=== PATIENT | female | born 1940 | race Caucasian/White ===

== ENCOUNTER → 2025-09-01 07:00 | Day surgery (SDC) | payer OTHER, SELFPAY | LOC: CATH 07:00 | PROVIDERS: ATTENDING PHYSICIAN Internal Medicine Cardiovascular Disease; FAMILY PHYSICIAN Family Medicine; OTHER PHYSICIAN Internal Medicine | DX: I48.19 Other persistent atrial fibrillation (principal); I48.92 Unspecified atrial flutter; R06.09 Other forms of dyspnea; I08.3 Combined rheumatic disorders of mitral, aortic and tricuspid valves; E66.9 Obesity, unspecified; Z68.32 Body mass index [BMI] 32.0-32.9, adult; I10 Essential (primary) hypertension; E78.5 Hyperlipidemia, unspecified; G47.33 Obstructive sleep apnea (adult) (pediatric); Z87.891 Personal history of nicotine dependence; H40.9 Unspecified glaucoma; M19.90 Unspecified osteoarthritis, unspecified site; R91.8 Other nonspecific abnormal finding of lung field; Z86.718 Personal history of other venous thrombosis and embolism; Z79.01 Long term (current) use of anticoagulants; Z79.899 Other long term (current) drug therapy; R26.2 Difficulty in walking, not elsewhere classified; Z88.8 Allergy status to other drugs, medicaments and biological substances; Z86.711 Personal history of pulmonary embolism; Z90.49 Acquired absence of other specified parts of digestive tract; Z96.653 Presence of artificial knee joint, bilateral | CPT/HCPCS: 93312; 93320; 93325; 86850; 86870; 86900; 86901; 86920; 86922 ==

== ENCOUNTER 2025-09-02 05:56 | Day surgery (SDC) | payer OTHER, SELFPAY ==
[2025-08-24 08:44] VITALS: BMI 32.5
[2025-08-24 09:41] LABS: Hematocrit 39.4 % (37.0-47.0); Hemoglobin 13.3 g/dL (12.0-16.0); Mean Corp Hgb Conc. 33.8 g/dL (33.0-37.0); Mean Corpuscular Volume 88.5 fL (81.0-99.0); Nucleated Red Blood Cells % 0 %; Platelet Count 278 10^3/uL (130-400); Red Cell Dist. Width 14.0 % (11.5-14.5)
[2025-08-24 09:47] LABS: INR 1.38; PT 17.2 Sec (11.4-14.6)
[2025-08-24 10:48] LABS: ALT (SGPT) 39 U/L (0-35); AST (SGOT) 36 U/L (14-36); Albumin 4.1 g/dl (3.5-5.0); Alkaline Phosphatase 74 U/L (38-126); Blood Urea Nitrogen 20 mg/dl (7-17); Calcium 9.6 mg/dl (8.4-10.2); Carbon Dioxide 28 mmol/L (22-30); Chloride 106 mmol/L (98-107); Estimated Creatinine Clearance 46 ml/min; Glucose 92 mg/dl (70-99); Magnesium 2.0 mg/dl (1.6-2.3); Potassium 4.5 mmol/L (3.5-5.1); Sodium 140 mmol/L (135-145); Total Protein 7.3 g/dl (6.3-8.2); eGFR > 60.00
[2025-09-02] VITALS (9 sets, daily range): BP systolic 103–126; BP diastolic 53–92; BMI 32.3
--- NOTE | 2025-09-02 07:20 | ITS.CL.ABL ---
[facility]igger - Ablation
Ablation
Procedure Report:
Primary Prefitter Doors: Dr Berry Tejeda
Procedure Date: 09/02/2025
Patient History:
Patient is a pleasant 84 year old female with a past medical history significant for hypertension, hyperlipidemia, history of VTE, PAVAN, mild , moderate MR, HF with mildly reduced LVEF (40-45%) with ESTRELLITA 09/01/25 showing LVEF 50-55% with moderate ,
symptomatic paroxysmal atrial fibrillation, and symptomatic paroxysmal atrial flutter.
See H&P for complete details.
Indication:
Symptomatic paroxysmal atrial flutter
Symptomatic paroxysmal atrial fibrillation
Arrhythmia Specific History:
Prior Medical Therapies for Rate and Rhythm Control:
X Beta-willie
[ ] Calcium channel-willie
[ ] Amiodarone
[ ] Dronederone
[ ] Sotalol
[ ] Flecainide
[ ] Dofetilide
[ ] Options limited by bradycardia
[ ] Options limited by comorbid renal disease
Prior Procedural Therapies for AF/AFL:
X Cardioversion
[ ] Pulmonary Vein Isolation
[ ] Posterior Wall Isolation
[ ] Additional lines (Specify)
[ ] Surgical Chen-MAZE or PVI (Specify)
Procedure Performed:
X AF ablation procedure (66803) -- includes LA/CS pacing, trans-septal, 3D mapping, + ICE
[ ] +IV drug (56311)
X +Other Arrhythmia (18275) -- LA flutter ablation
X +Other AF Line/ablation (40023 x2) -- floor line, roof line, posterior wall isolation
Risks and expected recovery has been explained in detail. Alternative options have been explored, and in a shared-decision making fashion we have decided that this was the most appropriate procedure.
Method
NPO status confirmed. Grounding pad applied. Defibrillator pads applied. Continuous surface ECG, pulse oximetry, and blood pressure were monitored. Procedure was performed under general anesthesia, with anesthesia services.
Both groins were clipped, prepped with Chloraprep, and draped in sterile fashion. Time out was called. Local anesthesia administered. The right femoral vein was accessed for catheter placement, using ultrasound guidance (images saved to record),
micro-puncture needle/wire, and modified seldinger technique. 3 sheaths were placed. The following catheters were used:
[ ] Tacticath SE (D/F Curve) ablation catheter
X Viewflex 9Fr ICE catheter
X Inquiry decapolar 6Fr diagnostic catheter
[ ] CRD Hex 6Fr
X FlexCath Contour 10 Fr with PulseSelect PFA Catheter
X Advisor HD Grid Mapping Catheter, SE
[ ] Acuson AcuNav 8 Fr ICE catheter
[ ]Other: [ ]
Intracardiac ultrasound (ICE) was carefully advanced into the right atrium to guide sheath placement over a J-wire, catheter placement, guide trans-septal puncture, identify potential complications, identify anatomic structures and ensure proper
contact between ablation catheter and tissue. A trace basal LV pericardial effusion was noted at the initiation of procedure. This remained unchanged throughout procedure and a case completion.
Following placement of the decapolar catheter, patient was noted to be in atrial flutter with a cycle length of 250 ms. Activation appeared to be colliding at the midportion of the decapolar catheter (CS 1/2, 9/10 earliest with CS 5/6 latest).
Pacing from the proximal and distal portions of the decapolar catheter demonstrated manifest entrainment with a PPI minus TCL greater than 50. Heparin was given to achieve and maintain a target ACT of 300-400 seconds throughout the procedure. HD
advisor grid was advanced into the right atrium and electroanatomic mapping demonstrated earliest activation on the septum.
Trans-septal access was performed under ICE guidance. The trans-septal puncture was performed with a SafeSept wire through a Brockenbrough needle assembly through the steerable sheath. The wire was visualized as it entered the LSPV and system
advanced under ICE guidance and fluoroscopy into the LA. The Brockenbrough needle assembly, SafeSept wire and sheath dilator were removed under negative pressure. LA pressure was measured and recorded.
ICE and 3D mapping was performed to identify relevant cardiac structures. A careful 3D map was created to assess for regions of low-voltage and abnormal electrogram signals using HD grid mapping catheter and PulseSelect catheter. Additional mapping
was performed as outlined below. Electroanatomic mapping of the left atrium demonstrated the left atrial flutter encompassing the posterior wall with scar and fractionation throughout the posterior wall. The critical isthmus appeared to be on the
superior/midline on the posterior wall. Pacing from the circuit within the critical isthmus demonstrated concealed entrainment with a PPI minus TCL of 0.
Prior to ablation, glycopyrrolate was provided. PulseSelect catheter was advanced over J-wire to the ostium of each vein. Pulselike catheter was placed on top of the critical isthmus with wire extending into the ostium of the vein. Single ablation
lesion provided on the critical isthmus with termination and mandaeism of sinus rhythm. Next, pulmonary vein isolation was performed with ostial and antral lesions in a circumferential manner. Contact was visualized via EAM, ICE, fluoroscopy, and
EGM signals.
After accomplishing pulmonary venous isolation, mapping identified additional areas likely to be extra PV contributors to atrial fibrillation. These areas demonstrated patchy low voltage as well as complex fractionated electrograms. These areas can
be sites for the formation of rotors which can drive and maintain atrial fibrillation. These areas are known to be significant contributors to initiation and perpetuation of atrial fibrillation.
Additional energy applications/additional ablation sets targeted extra PV contributors to atrial fibrillation.
Targets for additional PFA ablation included: LA posterior wall targeted with pulsed electric field energy isolating the posterior wall of the left atrium. Posterior wall isolation was performed by anchoring the J-wire within the pulmonary vein and
placing the PulseSelect catheter in contact posterior wall as visualized by aforementioned methods.
After ablation of the posterior wall, targets remained including:
- Inferior LA floor
- Anterior LA roof
- The ridge of tissue between the left atrial appendage and the left sided pulmonary veins (Ligament of Triston)
These areas were ablated using pulsed electric field energy eliminating the extra PV contributors to atrial fibrillation. Additionally, these lesions were performed in order to isolate the scar and atrial flutter which was participating on the
posterior wall.
Following completion of ablation lesions, a post-ablation voltage/activation map was performed in sinus rhythm. Entrance and exit block were confirmed for each vein and the posterior wall. Electrophysiology study was performed without induction of
atrial flutter or other arrhythmias.
Catheter and sheath were removed from the left atrium and post-ablation intracardiac echo evaluation was consistent with pre-ablation with no changes and no change to trace pericardial effusion and there is no left atrial thrombus or left ventricle
thrombus seen. Hemostasis was obtained with Vascade for each sheath and with manual pressure. Protamine was used for reversal.
Estimated Blood Loss
5 mL
Complications
None
Fluoroscopy: 3.7 minutes; 20.2 mGy; DAP 2.6
LA Pressure: Pre 16 mmHg, post 13 mmHg
Baseline Intervals:
Rhythm: Atrial flutter, TCL 250 ms
Post-Procedure Intervals:
AR: 186 ms
QRS: 98 ms
QT: 427 ms
AVWB: 330 ms
Recommendations
- Bedrest with straight-leg precautions as ordered
- Anticipate same day discharge if patient meeting clinical metrics
- Resume home medications as indicated
- Ok to resume anticoagulation tonight if patient and groin sites stable
- Plan for follow-up in office as scheduled
Sandeep Meza DO, FACC, [facility]
Clinical Cardiac Artificial Breeding Technician
cc: Dr Berry Tejeda; Dr Deja Dillard
[2025-09-02 09:04] LABS: ACT-LR - POC 334 Seconds (116-155)
[2025-09-02 09:22] LABS: ACT-LR - POC 331 Seconds (116-155)
[2025-09-02 09:50] LABS: ACT-LR - POC 314 Seconds (116-155)
[2025-09-02 10:11] LABS: ACT-LR - POC 150 Seconds (116-155)
--- NOTE | 2025-09-02 12:29 | W.PN.UPDATE ---
Update Note
Progress Note Update
Pt seen post PFA. Right groin site with vascade closure, no ht/bleeding, non tender. OOB ambulating, urinating without difficulty. Post EKG NSR, no acute changes. Resume eliquis tonight. Followup with Dr. Tejeda in 2 weeks as scheduled. Home today if
groin site/tele remain stable.
== END 2025-09-02 13:05 | disposition home or self-care (01) ==
LOC: CATH 05:56
PROVIDERS: ATTENDING PHYSICIAN Internal Medicine Cardiovascular Disease; FAMILY PHYSICIAN Family Medicine; OTHER PHYSICIAN Internal Medicine
DX: I48.19 Other persistent atrial fibrillation (principal); I48.92 Unspecified atrial flutter; E66.9 Obesity, unspecified; Z68.32 Body mass index [BMI] 32.0-32.9, adult; E78.5 Hyperlipidemia, unspecified; I34.0 Nonrheumatic mitral (valve) insufficiency; G47.33 Obstructive sleep apnea (adult) (pediatric); I11.0 Hypertensive heart disease with heart failure; I50.22 Chronic systolic (congestive) heart failure; Z87.891 Personal history of nicotine dependence; H40.9 Unspecified glaucoma; R91.8 Other nonspecific abnormal finding of lung field; M19.90 Unspecified osteoarthritis, unspecified site; R26.2 Difficulty in walking, not elsewhere classified; Z86.718 Personal history of other venous thrombosis and embolism; Z86.711 Personal history of pulmonary embolism; Z79.899 Other long term (current) drug therapy; Z79.01 Long term (current) use of anticoagulants; Z88.8 Allergy status to other drugs, medicaments and biological substances
CPT/HCPCS: C1766; C1733; C1730; C1769; C1732; C1894; 80053; 83735; 85025; 85347; 85610; 86850; 86870; 86900; 86901; 93005; 93655; 93656; 93657; C1760